=== PATIENT | male | born 1940 ===

== ENCOUNTER 2017-04-06 07:36 | Day surgery (SDC) | payer MEDICARE ==
[2017-04-04 11:21] VITALS: BMI 36.3
[2017-04-06 08:08] LABS: BASO # 0.1 K/mm3 (0.0-2.0); BASO % 2.1 % (0.0-3.0); EOS # 0.2 (0.0-0.7); EOS % 3.1 % (1.5-5.0); GRAN # 2.48 (1.4-6.5); GRAN % 51.1 % (50.0-68.0); LYMPH # 1.4 (1.2-3.4); LYMPH % 27.8 % (22.0-35.0); MEAN CELL VOLUME 90.9 fl (80.0-105.0); MEAN CORPUSCULAR HEMOGLOBIN 30.2 pg (25.0-35.0); MEAN CORPUSCULAR HGB CONC 33.3 g/dl (31.0-37.0); MEAN PLATELET VOLUME 11.1 fl (7.0-11.0); MONO # 0.8 (0.1-0.6); MONO % 15.9 % (1.0-6.0); RBC 4.63 10^6/uL (3.5-6.1); RED CELL DISTRIBUTION WIDTH 13.8 % (11.5-14.5); WHITE BLOOD COUNT 4.9 10^3/ul (4.5-11.0)
[2017-04-06 08:15] LABS: BLOOD UREA NITROGEN 16 mg/dL (7-21); CALCIUM 9.9 mg/dL (8.4-10.5); GFR AFRICAN-AMERICAN > 60; GFR NON-AFRICAN AMERICAN > 60
[2017-04-06 08:16] LABS: PROTHROMBIN TIME 10.8 SECONDS (9.4-12.5)
[2017-04-06 08:20] LABS: INR 0.94 (0.93-1.08); PARTIAL THROMBOPLASTIN TIME 30.9 Seconds (25.1-36.5)
[2017-04-06] MEDS ORDERED: Lidocaine 2% Inj (20ml) ONE (09:58)
[2017-04-06] MEDS ORDERED: Iodixanol 320 MG/ML 100 ML BOTTLE IV ONE (09:59)
[2017-04-06] MEDS ORDERED: Midazolam 2 MG/2 ML VIAL ONE ×2 (09:59→10:19)
[2017-04-06] MEDS ORDERED: HEPARIN SODIUM/NS 2,000 ML IV ONE (09:59)
[2017-04-06] MEDS ORDERED: Iohexol 350mgl/ml 50 ML ONE (09:59)
[2017-04-06] MEDS ORDERED: Iodixanol 320 MG/ML 200 ML BOTTLE IV ONE (09:59)
[2017-04-06] MEDS ORDERED: Sodium Chloride 0.9% 1,000 ML IV SCH (11:00)
[2017-04-06] MEDS: Insulin Reg-MEDIUM-Coverage SC SCH ×3 (11:30→21:21)
--- NOTE | 2017-04-06 16:06 | CARD ---
APPROVED REPORT EKG Measurement Heart [id number] [place] [id number] <Conclusion> Normal sinus rhythm Possible Inferior infarct, age undetermined Abnormal ECG
--- NOTE | 2017-04-06 16:22 | CARD ---
APPROVED REPORT EKG Measurement Heart [id number] [place] [id number] [id number] <Conclusion> Normal sinus rhythm Normal ECG
[2017-04-06 17:44] VITALS: RESP 20
--- NOTE | 2017-04-06 21:43 | CARDCATH ---
PROCEDURE DATE: 04/06/2017 CARDIAC CATHETERIZATION AND PTCA HISTORY: The patient is a 76-year-old male who presents with unstable angina. The stress test was abnormal. The patient has had multivessel PTCA in the past. In addition, he suffers from diabetes mellitus. Because of this, cardiac catheterization was recommended. PROCEDURES: Left heart catheterization with coronary arteriography and left ventriculogram, followed by percutaneous transluminal coronary angioplasty and stent of RCA. The right femoral artery was cannulated with a 6-B[place] sheath. There were no complications. I performed moderate sedation, which included the presence of an independent trained observer that assisted in monitoring the patient's level of consciousness and physiologic status. After administration of Versed and fentanyl, my intra-service time was 30 minutes. FINDINGS: The findings on catheterization revealed a left main artery that was unremarkable. The LAD revealed a patent stent in the midportion with a patent stent in the diagonal vessel. There was a patent stent in the circumflex artery. The RCA was a dominant vessel and revealed intimal irregularities. In the proximal portion of the RCA, there was a dissected plaque that was seen and its eccentric portion revealed 80% stenoses. LV function was preserved with an EF of approximately 55% to 60%. The patient was started on intravenous Angiomax on the fluoroscopic guide, the guiding catheter was placed in the ostium of the RCA. An 0.014 ATW wire was used to cross the RCA lesion. A 4.0 x 9-mm drug-eluting stent was placed and deployed in the proximal RCA. After balloon deflation and removal, repeat coronary arteriography revealed an excellent result with no residual stenosis and ISA-3 flow. The patient tolerated the procedure well. Angio-Seal was used to close the femoral artery site. SUMMARY: The procedure was successful with PTCA and stent of a proximal dissected RCA lesion of 80%. A drug-eluting stent was utilized. Cardiac catheterization reveals normal LV function and patent stents in the LAD and circumflex artery. Given these findings, the patient will need to remain on aspirin indefinitely and Plavix for at least a year and undergo a strict cardiac risk reduction program. Nahun Hassan MD [facility] # [id number]
--- NOTE | 2017-04-06 23:16 | HP ---
HISTORY OF PRESENT ILLNESS: I was called to the laboratory animal facility supervisor by Dr. Nahun Hassan to put this patient on my service. I was there with the family, discussed at length the procedure, what happened, and he is now in the hospital. He came in for a cath due to a abnormal stress test, and now he is lying on a stretcher status post cath and stent placement. PAST MEDICAL HISTORY: He has a past medical history of diabetes, coronary artery disease, high cholesterol, hypertension. He has had PTCA stents x2 eight years ago. SOCIAL HISTORY: He quit smoking 30 years ago. No alcohol. No drugs. There is a history of cardiovascular disease with his brother, peripheral edema. He is alert and oriented x3. REVIEW OF SYSTEMS: No acute vision changes or hearing changes. No sore throat. No neck pain. He did have chest discomfort, some nausea and some shortness of breath. No abdominal pain. No leg pains. ALLERGIES: HE HAS NO KNOWN DRUG ALLERGIES. MEDICATIONS: He takes aspirin, metformin, Plavix, simvastatin and Zestril at home. Holding the Glucophage due to his recent cath, he could probably start that up in 2 days, to get rid of the dye. He will be on insulin coverage. PHYSICAL EXAMINATION: VITAL SIGNS: Temperature 98.2, 78 pulse, 139/74 blood pressure, 18 respiratory rate, 97% O2 sat on room air. HEENT: His head is atraumatic, normocephalic. Extraocular muscles are intact. Pupils equal and reactive to light and accommodation. Throat is moist. NECK: Supple. HEART: Regular rate. LUNGS: Decreased breath sounds, but clear to auscultation. ABDOMEN: Soft, obese, nontender. Positive bowel sounds. No guarding, no rebound. No CVA tenderness. EXTREMITIES: No edema. He has to lay flat at this time due to the cath for 6 hours, he understands that they could feed him when he is lying down. SKIN: For the most part is intact what I could see. NEUROLOGIC: He is alert and oriented x3. Cranial nerves II through XII grossly intact. Not anxious. LABORATORY DATA: He has a 140 sodium, potassium 4.3, BUN 16, creatinine 0.8, GFR is greater than 60, sugar is 179, calcium is 9.9. INR is 0.94. White count is 4.9, hemoglobin 14, hematocrit 42.1, platelets of 270. ASSESSMENT AND PLAN: He is going to be on his medications as per Dr. Hassan, Ecotrin, Lipitor, Plavix, insulin coverage. We will keep him overnight and most probably discharge him tomorrow. He is here for CAD, positive stress test, status post catheterization with stent placement, diabetes, hypertension and high cholesterol. I answered many questions from family. Silvestre James DO
[2017-04-06 23:33] VITALS: O2SAT 98
[2017-04-07 07:21] LABS: ALB/GLOB RATIO 1.1 (1.1-1.8); ALBUMIN 4.3 g/dL (3.0-4.8); ALT/SGPT 52 U/L (7-56); AST/SGOT 48 U/L (17-59); BLOOD UREA NITROGEN 16 mg/dL (7-21); CALCIUM 9.7 mg/dL (8.4-10.5); GFR AFRICAN-AMERICAN > 60; GFR NON-AFRICAN AMERICAN > 60
[2017-04-07 07:25] LABS: BASO # 0.06 K/mm3 (0.0-2.0); BASO % 0.9 % (0.0-3.0); EOS # 0.2 (0.0-0.7); EOS % 2.7 % (1.5-5.0); GRAN # 3.9 (1.4-6.5); GRAN % 61.2 % (50.0-68.0); HEMOGLOBIN 14.1 g/dL (14.0-18.0); LYMPH # 1.4 (1.2-3.4); LYMPH % 21.4 % (22.0-35.0); MEAN CELL VOLUME 92.4 fl (80.0-105.0); MEAN CORPUSCULAR HEMOGLOBIN 29.8 pg (25.0-35.0); MEAN CORPUSCULAR HGB CONC 32.3 g/dl (31.0-37.0); MEAN PLATELET VOLUME 11.5 fl (7.0-11.0); MONO # 0.9 (0.1-0.6); MONO % 13.8 % (1.0-6.0); RBC 4.73 10^6/uL (3.5-6.1); WHITE BLOOD COUNT 6.4 10^3/ul (4.5-11.0)
[2017-04-07] MEDS: Insulin Reg-MEDIUM-Coverage SC SCH ×3 (07:55→12:09)
[2017-04-07 11:59] VITALS: BP 117/51; PULSE 68; TEMP 97.7
--- NOTE | 2017-04-07 14:38 | CARD ---
APPROVED REPORT EKG Measurement Heart [id number] [place] [id number] [id number] <Conclusion> Normal sinus rhythm Normal ECG
--- NOTE | 2017-04-07 15:13 | PN ---
DATE: REASON FOR DICTATION: Covering Dr. Hassan. REASON FOR CONSULTATION: CAD, unstable angina, status post PTCA of RCA with stent. OBJECTIVE GENERAL: Not in any apparent distress. VITAL SIGNS: Temperature afebrile, heart rate 70, blood pressure 117/63. HEENT: PERRLA, intact. NECK: Supple. No carotid bruit. No thyromegaly. CHEST: Clear to auscultation. HEART: S1 and S2, regular. ABDOMEN: Soft. EXTREMITIES: Clubbing and cyanosis negative. LABORATORY DATA: Blood workup: WBC 6.5, hemoglobin , hematocrit 43.7, platelet count 278,000. Chemistry shows sodium 144, potassium 4.8, chloride 105, carbon dioxide 23, anion gap of 16, BUN 16, creatinine 0.8. IMPRESSION: Unstable angina; coronary artery disease, status post percutaneous transluminal coronary angioplasty of right coronary artery; CVS status stable; right groin appears okay; history of diabetes; hypertension; history of percutaneous transluminal coronary angioplasty in the past. RECOMMENDATIONS: Continue aspirin. Continue Plavix. Continue atorvastatin. Okay to be discharged after seen by Dr. James. Thank you, Dr. James for providing us the opportunity in taking care of the patient, Abram Villegas. Rolanda Early MD
--- NOTE | 2017-04-08 09:40 | DS ---
HOSPITAL COURSE: He had a cardiac cath and stent placement by Dr. Hassan yesterday. He is on Ecotrin, Lipitor, Plavix. He is comfortable on bed. No chest pain or shortness of breath. No abdominal pain. In good spirits. He is ready to go home. PHYSICAL EXAMINATION: VITAL SIGNS: He has a 97.9 temperature , 70 pulse, 117/67 blood pressure, 20 respiratory rate, 98% O2 sat on room air. HEENT: His head is atraumatic, normocephalic. HEART: Regular rate. LUNGS: Decreased breath sounds, but clear to auscultation. ABDOMEN: Soft, obese, nontender. Positive bowel sounds. EXTREMITIES: No edema. I discussed with him the importance of exercise, also the importance of very healthy diet, low cholesterol, do not eat junk food, try and eat healthy food, salads, and go for walk and exercise in his body. He understands that. LABORATORY DATA: He had a 141 sodium, potassium 4.2, BUN 16, creatinine 0.8, GFR is greater than 60, sugar is 171, calcium is 9.7. Total bilirubin is 0.7, AST is 48, ALT is 62, alk phos 87, total protein is 8.2. White count is 6.4, hemoglobin 14.1, hematocrit 40.7, platelets of 278. PLAN: We will continue with treatment and care on the outpatient and follow up with Dr. Hassan and his family care doctor. He will be on Ecotrin, Lipitor, Plavix. Silvestre James DO
== END 2017-04-07 13:08 | disposition home or self-care (01) ==
LOC: CATH 07:36 → 2RSO 11:07 → CATH 04-07 13:08
PROVIDERS: ATTEND Internal Medicine Cardiovascular Disease
DX: I25.110 Atherosclerotic heart disease of native coronary artery with unstable angina pectoris (principal); E11.9 Type 2 diabetes mellitus without complications; E78.00 Pure hypercholesterolemia, unspecified; I10 Essential (primary) hypertension; Z79.02 Long term (current) use of antithrombotics/antiplatelets; Z79.82 Long term (current) use of aspirin; Z79.84 Long term (current) use of oral hypoglycemic drugs; Z87.891 Personal history of nicotine dependence; Z95.5 Presence of coronary angioplasty implant and graft; R94.39 Abnormal result of other cardiovascular function study
CPT/HCPCS: 36415 ×2; 80048; 80053; 85025 ×2; 85027; 85610; 85730; 86850; 86900; 93005 ×2; 93458; 99152; C1760; C1769 ×2; C1874; C1887 ×2; C2629; C9600; J0583; J1644; J2250; J3010; J7040 ×2; Q9967